=== PATIENT | female | born 1985 | race Caucasian/White ===

== ENCOUNTER 2017-03-16 18:54 | Emergency (ER) | payer BC ==
--- NOTE | 2017-03-16 20:26 | ER Document Report ---
ED GI/ - General Chief Complaint: Vaginal Bleeding Stated Complaint: VAGINAL BLEEDNG Time Seen by Provider: 03/16/17 20:17 Notes: Patient is a 32-year-old female comes emergency department for chief complaint of heavy vaginal bleeding. She states she began bleeding 1 month ago and has had daily bleeding, bleeding has increased over the past 5 days. Patient states she feels tired and weak compared to previously. She denies dizziness. She denies any abdominal, pelvic, or flank pain. He denies fever. She denies history of the same. She states that she did have an endometrial biopsy a couple of months ago, she states she is having a LEEP procedure scheduled for 2 weeks from now because of an abnormal Pap smear this past year. She does not use any contraceptive, she is actually trying to get . TRAVEL OUTSIDE OF THE [place] IN LAST 30 DAYS: No - Related Data Allergies/Adverse Reactions: No Known Allergies Allergy (Verified 10/02/12 09:02) Past Medical History - General Information source: Patient - Social History Smoking Status: Never Smoker Frequency of alcohol use: None Drug Abuse: None Lives with: Family Family History: Reviewed & Not Pertinent Patient has suicidal ideation: No Patient has homicidal ideation: No - Medical History Medical History: Negative Renal/ Medical History: Denies: Hx Peritoneal Dialysis Surgical Hx: Negative - Immunizations Hx Diphtheria, Pertussis, Tetanus Vaccination: Yes - 2011 Review of Systems - Review of Systems Constitutional: No symptoms reported EENT: No symptoms reported Cardiovascular: No symptoms reported Respiratory: No symptoms reported Gastrointestinal: No symptoms reported Genitourinary: No symptoms reported Female Genitourinary: See HPI Musculoskeletal: No symptoms reported Skin: No symptoms reported Hematologic/Lymphatic: No symptoms reported Neurological/Psychological: No symptoms reported Physical Exam - Vital signs Vitals: Temp Pulse Resp BP Pulse Ox 98.3 F 89 20 111/94 H 98 03/16/17 19:46 03/16/17 19:46 03/16/17 19:46 03/16/17 19:46 03/16/17 19:46 Interpretation: Normal - General General appearance: Appears well, Alert In distress: None - HEENT Head: Normocephalic, Atraumatic Eyes: Normal Conjunctiva: Normal Extraocular movements intact: Yes Eyelashes: Normal Pupils: PERRL Nasal: Normal Mouth/Lips: Normal Mucous membranes: Normal Pharynx: Normal Neck: Normal - Respiratory Respiratory status: No respiratory distress Chest status: Nontender Breath sounds: Normal. No: Decreased air movement, Wheezing Chest palpation: Normal - Cardiovascular Rhythm: Regular. No: Tachycardia Heart sounds: Normal auscultation, S1 appreciated, S2 appreciated Murmur: No - Abdominal Inspection: Normal Distension: No distension Bowel sounds: Normal Tenderness: Nontender. No: Tender, Guarding - Genitourinary External exam: Normal Speculum exam: Vaginal discharge - minimal Vaginal bleeding: Mild - very slight bleeding noted from the cervix; no clots; no other abnormality Bimanuel exam: No: Cervical motion tender - Back Back: Normal, Nontender. No: Tender - Extremities General upper extremity: Normal inspection, Nontender, Normal ROM, Normal strength General lower extremity: Normal inspection, Nontender, Normal ROM, Normal strength - Neurological Neuro grossly intact: Yes Cognition: Normal Orientation: AAOx4 Roselyn Coma Scale Eye Opening: Spontaneous Roselyn Coma Scale Verbal: Oriented Shepherd Coma Scale Motor: Obeys Commands Roselyn Coma Scale Total: 15 Speech: Normal Motor strength normal: LUE, RUE, LLE, RLE Sensory: Normal - Psychological Associated symptoms: Normal affect, Normal mood - Skin Skin Temperature: Warm Skin Moisture: Dry Skin Color: Normal Course - Re-evaluation Re-evalutation: Patient has no tenderness on her abdominal exam, she does not report any tenderness. CBC does not show any anemia, minimal bleeding on speculum examination with minimal discharge. Ultrasound with no acute abnormalities. Discussed all results with patient, provided a copy of all her results. Because of the bacteria on the wet mount along with patient's ongoing bleeding patient will be treated with Flagyl, I did discuss short-term treatment with oral contraceptive to treat patient's bleeding, she declined this, patient does have close LEGAL OFFICE ADMINISTRATOR follow-up, patient states she will make a decision at that time. Discussed return precautions, patient states understanding and agreement. - Vital Signs Vital signs: Temp Pulse Resp BP Pulse Ox 98.1 F 88 18 125/83 98 03/16/17 22:23 03/16/17 22:23 03/16/17 22:23 03/16/17 22:23 03/16/17 22:23 - Laboratory Result Diagrams: 03/16/17 20:30 Laboratory results interpreted by me: 03/16/17 20:30 WBC 13.6 H Absolute Neutrophils 9.2 H Discharge - Discharge Clinical Impression: Vaginal bleeding Menorrhagia Qualifiers: Menorrahagia type: with irregular cycle Qualified Code(s): N92.1 - Excessive and frequent menstruation with irregular cycle Condition: Stable Disposition: HOME, SELF-CARE Additional Instructions: You are not anemic (your red blood cell counts are not low). Your ultrasound shows no abnormalities. Your pelvic examination shows an excess of normal bacteria (bacterial vaginosis ) - take the flagyl as prescribed. The exact cause of your symptoms is uncertain (dysfunctional uterine bleeding, see below). Follow up with OBGYN as planned. Return for any concerning symptoms. Dysfunctional Uterine Bleeding You're having an abnormal pattern of bleeding from the uterus. We call this dysfunctional uterine bleeding. It is most often caused by a hormone imbalance. Most often this is temporary and no cause is found. Dysfunctional uterine bleeding is especially common at times when the normal menstrual cycle is disturbed -- whether by recent , use of control pills or hormones, or impending menopause. Some medical problems lead to dysfunctional bleeding, such as obesity or being very underweight, stress, or thyroid problems. In many cases, the menstrual cycle will return to normal without any treatment. Where the bleeding is significant, high-dose estrogen will usually stop the bleeding within a day of two. A cycle or two of hormones ( control pills) can help restore the uterus to normal. In some patients where bleeding is severe or resistant to treatment, a D&C is required. Treatment for anemia may be required if bleeding is severe. You should rest and avoid intercourse until the bleeding is controlled. Call the doctor or return for re-examination if you feel faint, have increasing pain, or have a major increase in the amount of bleeding. Prescriptions: Metronidazole [Flagyl 500 mg Tablet] 500 mg PO BID #14 tablet Referrals: CEDRIC CELESTIN NP [Primary Care Provider] - Follow up as needed
[2017-03-16 20:46] LABS: ABSOLUTE BASOPHILS # (AUTO) 0.1 10^3/uL (0.0-0.2); ABSOLUTE EOSINOPHILS # (AUTO) 0.2 10^3/uL (0.0-0.6); ABSOLUTE LYMPHOCYTES (AUTO) 3.5 10^3/uL (0.5-4.7); ABSOLUTE MONOCYTES (AUTO) 0.6 10^3/uL (0.1-1.4); ABSOLUTE NEUT (AUTO) 9.2 10^3/uL (1.7-8.2); BASOPHILS % (AUTO) 0.6 % (0-2); EOSINOPHILS % (AUTO) 1.5 % (0-6); HEMOGLOBIN 12.6 g/dL (12.0-15.5); HGB HCT DIFFERENCE -0.2; LYMPHOCYTES % (AUTO) 25.9 % (13-45); MEAN CORPUSCULAR HEMOGLOBIN 29.6 pg (27.0-33.4); MEAN CORPUSCULAR VOLUME 90 fl (80-97); MONOCYTES % (AUTO) 4.5 % (3-13); RED BLOOD COUNT 4.24 10^6/uL (3.72-5.28); RED CELL DISTRIBUTION WIDTH 13.7 % (11.5-14.0); SEGMENTED NEUTROPHILS % (AUTO) 67.5 % (42-78); WHITE BLOOD COUNT 13.6 10^3/uL (4.0-10.5)
--- NOTE | 2017-03-16 21:38 | RADIOLOGY REPORT (SQ) ---
EXAM DESCRIPTION: U/S NON OB PEL TV W/DOPPLER COMPLETED DATE/TIME: 03/16/2017 9:23 pm REASON FOR STUDY: heavy vaginal bleeding, bleeding daily x 1 month COMPARISON: None. TECHNIQUE: Dynamic and static grayscale images acquired of the pelvis via transvaginal approach and recorded on PACS. Additional selected color Doppler and spectral images recorded. LIMITATIONS: None. FINDINGS: UTERUS: Contour normal. No mass. ENDOMETRIAL STRIPE: No focal or generalized thickening. No masses. CERVIX: No nabothian cysts. RIGHT OVARY: No abnormal masses. RIGHT OVARY DOPPLER: Normal arterial vascular flow without evidence for torsion. LEFT OVARY: No abnormal masses. LEFT OVARY DOPPLER: Normal arterial vascular flow without evidence for torsion. FREE FLUID: None noted. OTHER: No other significant finding. MEASUREMENTS: UTERUS: 9.0 x 4.4 x 4.2 cm ENDOMETRIAL STRIPE: 1.5 mm RIGHT OVARY: 3.7 x 2.8 x 2.2 cm LEFT OVARY: 3.2 x 1.9 x 1.8 cm IMPRESSION: Age-appropriate exam. TECHNICAL DOCUMENTATION: JOB ID: [id number] All Rights Reserved
[2017-03-16] MEDS ORDERED: METRONIDAZOLE 500 MG TABLET PO ONE (22:17)
[2017-03-16 22:24] VITALS: BP 125/83
[2017-03-16 22:24] LABS: CHLAM PCR NOT DETECTED (NOT DETECT)
== END 2017-03-16 22:32 | disposition home or self-care (01) ==
LOC: ER 18:54
DX: N92.1 Excessive and frequent menstruation with irregular cycle (principal)
CPT/HCPCS: 36415; 76830; 84703; 85025; 87210; 87491; 87591; 93976; 99284